=== PATIENT | female | born 1990 | race American Indian/Alaskan Native ===

== ENCOUNTER 2017-07-17 07:59 | Emergency (ER) | payer BC ==
[2017-07-17] MEDS ORDERED: TYLENOL PO ONE (09:32)
[2017-07-17 09:48] LABS: Hematocrit 39.4 % (30.3-42.9); Hemoglobin 13.1 gm/dl (10.1-14.3); Mean Corpuscular HGB Conc 33 % (30-34); Mean Corpuscular Hemoglobin 28 pg (28-32); Mean Corpuscular Volume 84 fl (79-97)
--- NOTE | 2017-07-17 09:50 | Emergency Department Report ---
ED Female HPI - General Chief complaint: Vaginal Bleeding Stated complaint: SPOTTING/CRAMPS/ Time Seen by Provider: 07/17/17 09:22 Source: patient Mode of arrival: Ambulatory Limitations: No Limitations - History of Present Illness Initial comments: 26-year-old female with no significant past medical history presents to house with her first currently approximately 8 weeks by dates complaining of suprapubic cramping and vaginal spotting since yesterday. Cramping pain is rated 8/10 and intensity, intermittent, without aggravating or alleviating factors. Spotting increased today but patient still has only used one pad since this morning. She told her DIRECTOR CALL and was told this is normal with however, she has not received an ultrasound during this . DIRECTOR CALL: [facility] - Related Data Allergies Allergy/AdvReac Type Severity Reaction Status Date / Time No Known Allergies Allergy Unverified 07/17/17 08:07 ED Review of Systems ROS: Stated complaint: SPOTTING/CRAMPS/ Other details as noted in HPI Comment: All other systems reviewed and negative ED Past Medical Hx - Past Medical History Previous Medical History?: No - Surgical History Past Surgical History?: No - Social History Smoking Status: Never Smoker Substance Use Type: None ED Physical Exam - General Limitations: No Limitations - Other Other exam information: General: No limitations, patient is alert in no acute distress Head exam: Atraumatic, normocephalic Eyes exam: Normal appearance ENT: Moist mucous membrane Neck exam: Normal inspection, full range of motion Respiratory exam: Clear to auscultation bilateral, no wheezes, rales, crackles Cardiovascular: Normal rate and rhythm, normal heart sounds Abdomen: Soft, nondistended, and nontender, with normal bowel sounds, no rebound, or guarding Extremity: Full range of motion normal inspection no deformity Back: Normal Inspection, full range of motion, no tenderness Neurologic: Alert, oriented x3, cranial nerves intact, no motor or sensory deficit Psychiatric: normal affect, normal mood Skin: Warm, dry, intact ED Course Vital Signs 07/17/17 07/17/17 07/17/17 08:03 09:38 12:07 Temperature 98.4 F 98.8 F Pulse Rate 107 H 97 H Respiratory 16 16 18 Rate Blood Pressure 124/78 Blood Pressure 111/67 [Left] O2 Sat by Pulse 98 99 Oximetry - Reevaluation(s) Reevaluation #1: 07/17/17 09:50 Tylenol for pain ED Medical Decision Making - Lab Data Result diagrams: 07/17/17 09:06 Lab Results 07/17/17 07/17/17 07/17/17 Range/Units 09:06 09:06 09:06 WBC 7.7 (4.5-11.0) K/mm3 RBC 4.70 (3.65-5.03) M/mm3 Hgb 13.1 (10.1-14.3) gm/dl Hct 39.4 (30.3-42.9) % MCV 84 (79-97) fl MCH 28 (28-32) pg MCHC 33 (30-34) % RDW 13.0 L (13.2-15.2) % Plt Count 127 L (140-440) K/mm3 HCG, Quant 5585 H (0-4) mIU/mL Blood Type A POSITIVE - Radiology Data Radiology results: report reviewed us transvag/pelvic Findings: Uterus measures 7.8 x 4.5 x5 cm. Endometrial thickness is 8.5 mm. There is single intrauterine gestational sac identified measuring 9.4 mm corresponding to 5 weeks and 5 days of gestation. The sac is seen no at the lower uterine segment. No pole or yolk sac is noted within the sac. Right ovary 3.8 x 2 x 1.7 cm. Complex cyst in the right ovary measures 2 cm. Left ovary 3.9-1.8 x 2.2 cm. No mass. No free fluid in the cul-de-sac. Impression: Low-lying gestational sac without yolk sac or pole within the sac. - Medical Decision Making vag bleeding + IUP low lying without yolk sac or pole or responding to 5 weeks and 5 days Rh+ RhoGAM not necessary No significant hemorrhage, H&H normal Patient provided a copy of her labs and ultrasound to follow up with straw hat machine operator pelvic rest recommended - Differential Diagnosis miscarriage, ectopic, threatened Critical Care Time: No Critical care attestation.: If time is entered above; I have spent that time in minutes in the direct care of this critically ill patient, excluding procedure time. ED Disposition Clinical Impression: Threatened in early , Blood type A+ Disposition: DC-01 TO HOME OR SELFCARE Is pt being admited?: No Does the pt Need Aspirin: No Condition: Stable Instructions: Threatened Miscarriage (ED) Additional Instructions: Pelvic rest i.e. no sex recommended. Return if you have bleeding greater than one pad per hour, severe pain, or passing out. Otherwise, take the copy of the labs and ultrasound were provided to the DIRECTOR CALL doctor for further workup and evaluation. Take Tylenol only as needed for pain Referrals: zain, straw hat machine operator MD [Other] - 2-3 Days Time of Disposition: 12:17
[2017-07-17 09:52] LABS: Platelet Count 127 K/mm3 (140-440)
--- NOTE | 2017-07-17 11:18 | Ultrasound Report ---
Transvaginal sonography: History: Bleeding, cramping. Findings: Uterus measures 7.8 x 4.5 x5 cm. Endometrial thickness is 8.5 mm. There is single intrauterine gestational sac identified measuring 9.4 mm corresponding to 5 weeks and 5 days of gestation. The sac is seen no at the lower uterine segment. No pole or yolk sac is noted within the sac. Right ovary 3.8 x 2 x 1.7 cm. Complex cyst in the right ovary measures 2 cm. Left ovary 3.9-1.8 x 2.2 cm. No mass. No free fluid in the cul-de-sac. Impression: Low-lying gestational sac without yolk sac or pole within the sac.
[2017-07-17 12:08] VITALS: BP 111/67
== END 2017-07-17 12:35 | disposition home or self-care (01) ==
LOC: ED 07:59
DX: O20.0 Threatened abortion (principal); Z3A.01 Less than 8 weeks gestation of pregnancy
CPT/HCPCS: 36415; 76801; 76817; 84702; 85027; 86900; 86901; 99284

== ENCOUNTER 2018-04-03 08:12 | Emergency (ER) | payer BC, OTHER ==
[2018-04-03] MEDS ORDERED: TYLENOL PO ONE (10:48)
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
[2018-04-03 12:43] VITALS: BP 97/54
== END 2018-04-03 12:42 | disposition home or self-care (01) ==
LOC: ED 08:12
DX: O9A.212 Injury, poisoning and certain other consequences of external causes complicating pregnancy, second trimester (principal); S70.01XA Contusion of right hip, initial encounter; Z3A.20 20 weeks gestation of pregnancy; V89.2XXA Person injured in unspecified motor-vehicle accident, traffic, initial encounter; Y93.89 Activity, other specified; Y92.488 Other paved roadways as the place of occurrence of the external cause; Y99.8 Other external cause status
CPT/HCPCS: 99282